=== PATIENT | male | born 1960 | race Caucasian/White ===

== ENCOUNTER 2016-12-27 11:47 | Inpatient (IN) ==
[2016-12-27] MEDS ORDERED: chlorproMAZINE 25 MG TABLET PO PRN (13:36)
[2016-12-27] MEDS ORDERED: traMADol 50 MG TABLET PO PRN (13:36)
[2016-12-27] MEDS ORDERED: diphenhydrAMINE CAP 25 MG CAPSULE PO PRN (13:36)
[2016-12-27] MEDS ORDERED: MYLANTA/LIDO VISC 2:1 300 ML BOTTLE SWISH/SWAL PRN (13:36)
[2016-12-27] MEDS ORDERED: MYLANTA/LIDO VISC 2:1 300 ML BOTTLE SWISH/SPIT PRN (13:36)
[2016-12-27] MEDS ORDERED: PROMETHAZINE INJ 25 MG in SODIUM CHLORIDE 0.9% 50 ML IV PRN (13:36)
[2016-12-27] MEDS ORDERED: guaiFENesin 200 MG/10 ML UDCUP PO PRN (13:36)
[2016-12-27] MEDS ORDERED: BENZTROPINE 2 MG/2 ML AMP IV PRN (13:36)
[2016-12-27] MEDS ORDERED: ALPRAZolam 0.25 MG TABLET PO PRN (13:36)
[2016-12-27] MEDS ORDERED: chlorproMAZINE INJ 25 MG in SODIUM CHLORIDE 0.9% 100 ML IV PRN (13:36)
[2016-12-27] MEDS ORDERED: ALUMINUM/MAGNES/SIMETH MAX STR 30 ML UDCUP PO PRN (13:36)
[2016-12-27] MEDS ORDERED: TEMAZEPAM 7.5 MG CAPSULE PO PRN (13:36)
[2016-12-27] MEDS ORDERED: LOPERAMIDE 2 MG CAPSULE PO PRN ×2 (13:36)
[2016-12-27] MEDS ORDERED: MAGNESIUM HYDROXIDE SUSP 30 ML UDCUP PO PRN (13:36)
[2016-12-27] MEDS ORDERED: ACETAMINOPHEN 325 MG TABLET PO PRN (13:36)
[2016-12-27] MEDS ORDERED: LACTULOSE 20 GM/30 ML UDCUP PO PRN (13:36)
[2016-12-27] MEDS ORDERED: chlorproMAZINE INJ 50 MG in SODIUM CHLORIDE 0.9% 100 ML IV PRN (13:36)
--- NOTE | 2016-12-27 14:12 | Gastrointestinal Consult Note ---
<Shalonda Stewart - Last Filed: 12/27/16 14:24> Assessment and Plan (1) Anemia Status: Acute Assessment and plan: 12/27-recent findings of melena with hemoglobin of 8.4 which is a decrease from his recent baseline of 12 on 11/29. Reports of increased dyspepsia and nausea following chemotherapy 2 weeks ago. Check stools for occult blood. Protonix twice daily. Plan for upper endoscopy tomorrow to further evaluate. Plan an addendum to follow by Dr. Ledesma. Current Visit: Yes History of Present Illness Chief complaint: Melena, epigastric pain History of present illness: Mr. Rhodes is a 56 year old male who was admitted to the hospital today after clinic visit with Dr. cleveland due to findings of anemia. Patient was recently diagnosed with pancreatic cancer last month and began his first initial chemotherapy treatment approximately 2 weeks ago. Patient states that following the treatment, he has some mild nausea as well as some increased dyspepsia symptoms including some increased belching and just generalized discomfort. He also recalls some epigastric pain at times with eating. Patient states too over the last several days he noticed that his stools have become darker than usual. He does recall taking a dose of Pepto-Bismol over the last several days but states this was only one time. He denies taking any NSAIDs. He denies any anticoagulant use. He denies any dysphagia, GERD. He denies any fever or chills. He has never been anemic in the past and has never had a blood transfusion before. He states that he was found at the clinic today to have a hemoglobin of 8 which was a significant drop from his baseline ( last known Hgb 12) and was referred to the hospital for further evaluation. Patient denies any vomiting episodes and does not recall any hematochezia. He states overall he has been fairly healthy up until this recent diagnosis. He has had a reported 5 pound weight loss since diagnosis. Home Medications Medication Instructions Recorded Confirmed Type Loratadine 10 mg PO DAILY 11/25/16 12/27/16 History Verapamil HCl [Verapamil Tab] 2 tablet PO DAILY 11/25/16 12/27/16 History Acetamin/Codeine 300-30 Tab 1 tablet PO Q6HR PRN 12/27/16 12/27/16 History [Tylenol/Codeine #3] Hydrocodone/Acetaminophen [[place] 1 tablet PO Q4-6H 12/27/16 12/27/16 History 10-325 Tablet] Lisinopril 20 mg PO DAILY 12/27/16 12/27/16 History Loperamide HCl [Imodium A-D] 2 mg PO DIRECTED PRN MDD 8 12/27/16 12/27/16 History Ondansetron Tab [Zofran Tab] 8 mg PO Q6H 12/27/16 12/27/16 History Promethazine Tab [Phenergan Tab] 25 mg PO Q4-6H PRN 12/27/16 12/27/16 History Allergies Allergy/AdvReac Type Severity Reaction Status Date / Time Penicillins Allergy Severe ANAPHYLAXIS Verified 11/25/16 11:17 Medical,Surgical,& Family Hx - Medical History Cardio: History of: Hypertension Neurology: No history of: Seizures HEENT: History of: Eye Problem (READING GLASSES), Dental Problems (FILLINGS) Respiratory: History of: Pneumonia (VAC.11/23/16) No history of: Respiratory Problems (FLU VAC- NO; PNEU VAC- YES.) Genitourinary: History of: Prostate Problems (BPH) Gastrointestinal: History of: GI Problems (PANCREAS MASS; NAUSEA) Musculoskeletal: History of: Back/Neck Problems (MIDDLE BACK PAIN) - Surgical History Orthopedic Surgeries: Surgical HX of;: Orthopedic Surgery (RT KNEE SCOPE) - Social History Smoking Status: Never smoker 12 point system: reviewed and no additional remarkable complaints except as stated - Constitutional Constitutional: Present: as per HPI - EENT Eyes: Present: as per HPI Ears: Present: as per HPI Nose, mouth and throat: Present: as per HPI - Cardiovascular Cardiovascular: Present: as per HPI - Respiratory Respiratory: Present: as per HPI - Gastrointestinal Gastrointestinal: Present: as per HPI, abdominal pain (Epigastric pain), dyspepsia, melena, nausea - Genitourinary Genitourinary: Present: as per HPI - Musculoskeletal Musculoskeletal: Present: as per HPI - Neurological Neurological: Present: as per HPI - Psychiatric Psychiatric: Present: as per HPI - Endocrine Endocrine: Present: as per HPI - Hematologic/Lymphatic Hematologic/Lymphatic: Present: as per HPI Exam - Constitutional Vitals: Period Temp Pulse Resp BP Sys/Puckett Pulse Ox Last 24 Hr 97.2 F 100 18 111/68 100 General appearance: normal weight, no acute distress - Head Head exam: Present: normal inspection, normocephalic - Eye Eye exam: Present: other (Lids and conjunctive are unremarkable). Absent: scleral icterus - ENT ENT exam: Present: normal exam, normal oropharynx - Neck Neck exam: Present: normal inspection - Respiratory Respiratory exam: Present: clear to auscultation bilaterally. Absent: rales, rhonchi, wheezes - Cardiovascular Cardiovascular exam: Present: regular rate and rhythm. Absent: diastolic murmur , JVD, systolic murmur - GI/Abdominal GI/Abdominal exam: Present: normal bowel sounds, tenderness (Epigastric), soft. Absent: ascites, distended, mass, organomegaly - Extremities Exam Extremities exam: Present: normal inspection, full ROM - Back Exam Back exam: Present: normal inspection - Neurological Exam Neurological exam: Present: alert, oriented X3 - Psychiatric Psychiatric exam: Present: normal affect, normal mood - Skin Skin exam: Present: normal color, warm, dry <Aureliano Ledesma - Last Filed: 12/27/16 20:50> History of Present Illness History of present illness: Mr. Rhodes is a 56 year old male Exam - Constitutional Vitals: Period Temp Pulse Resp BP Sys/Puckett Pulse Ox Last 24 Hr 97.2 F-98.6 F 84-100 18-20 111-142/68-80 99-100 Results - Labs CBC & BMP: 12/27/16 19:57
[2016-12-27] MEDS: PANTOPRAZOLE 40 MG VIAL IV SCH (14:48)
[2016-12-27] MEDS: SODIUM CHLORIDE 0.9% 1,000 ML IV SCH (14:49)
[2016-12-27 20:28] LABS: Basophils % 0.1 % (0.0-0.8); Eosinophils % 0.4 % (0.00-10.9); Hematocrit 23.3 VOL% (42.0-52.0); Hemoglobin 7.6 GM/DL (14.0-18.0); Immature Granulocytes % 11.6 %; Immature Granulocytes Absolute 0.89 #; Lymphocytes # 1.7 10*3/uL (1.4-4.0); Lymphocytes % 21.5 % (21.2-54.2); Mean Corpuscular HGB Conc 32.6 GM/DL (32-36); Mean Corpuscular Hemoglobin 28 PG (27-34); Mean Corpuscular Volume 85.3 FL (87-102); Mean Platelet Volume 10.3 FL (9.6-12.0); Monocytes # 0.6 10*3/uL (0.11-0.8); Monocytes % 7.9 % (1.7-12.7); NRBC # 0.03 10*3/uL; Neutrophils # 4.5 10*3/uL (1.4-7.4); Neutrophils % 58.5 % (38.7-73.9); Platelet Count 101 T/CUMM (130-400); Red Blood Count 2.73 MC/CUMM (3.8-5.5); Red Cell Distribution Width 14.6 % (9.3-17.3); White Blood Count 7.7 T/CUMM (4-12)
[2016-12-27] MEDS: ONDANSETRON 4 MG/2 ML VIAL IV PRN (21:43)
[2016-12-28 07:46] LABS: Basophils % 0.3 % (0.0-0.8); Eosinophils # 0.1 10*3/uL (0.0-0.87); Eosinophils % 0.8 % (0.00-10.9); Hematocrit 27.4 VOL% (42.0-52.0); Immature Granulocytes % 13.1 %; Immature Granulocytes Absolute 0.79 #; Lymphocytes # 1.3 10*3/uL (1.4-4.0); Lymphocytes % 22.2 % (21.2-54.2); Mean Corpuscular HGB Conc 33.9 GM/DL (32-36); Mean Corpuscular Hemoglobin 28 PG (27-34); Mean Corpuscular Volume 83.5 FL (87-102); Monocytes # 0.5 10*3/uL (0.11-0.8); Monocytes % 7.5 % (1.7-12.7); NRBC # 0.02 10*3/uL; Neutrophils # 3.4 10*3/uL (1.4-7.4); Neutrophils % 56.1 % (38.7-73.9); Red Cell Distribution Width 14.5 % (9.3-17.3)
[2016-12-28 07:47] LABS: Hemoglobin 9.3 GM/DL (14.0-18.0); Red Blood Count 3.28 MC/CUMM (3.8-5.5)
[2016-12-28 07:49] LABS: Platelet Count 79 T/CUMM (130-400)
[2016-12-28 07:53] LABS: INR 1.1; PT Patient Result 11.3 SECS; Partial Thromboplastin Time 23.9 SECS (0-40)
--- NOTE | 2016-12-28 07:54 | Oncology History&Physical ---
Assessment and Plan (1) Pancreatic carcinoma Status: Acute Assessment and plan: Proceed with EGD today and continued hematocrit monitor Current Visit: Yes History of Present Illness Chief complaint: Weakness History of present illness: Mr. Rhodes is a 56 year old male With newly diagnosed locally advanced pancreatic carcinoma. The patient has been seen by [facility] where he was referred to by Dr. Martinez. He presented originally to Dr. Jeremie Lynn with abdominal pain. He received 3 drug chemotherapy approximately 2 weeks ago. He has had significant nausea following the treatment but denied any hemoptysis or hematemesis. Over this past weekend he developed melena on Monday evening and Monday. He was seen yesterday in the office and appeared pale and weak and somewhat hypotensive. His hematocrit was 25 which was compared to a level of 38 prior to chemotherapy initiation. He was admitted for IV Protonix fluid resuscitation and blood transfusion which was given overnight. He has been seen by gastroenterology with plans for EGD today Home Medications Medication Instructions Recorded Confirmed Type Loratadine 10 mg PO DAILY 11/25/16 12/27/16 History Verapamil HCl [Verapamil Tab] 2 tablet PO DAILY 11/25/16 12/27/16 History Acetamin/Codeine 300-30 Tab 1 tablet PO Q6HR PRN 12/27/16 12/27/16 History [Tylenol/Codeine #3] Hydrocodone/Acetaminophen [[place] 1 tablet PO Q4-6H 12/27/16 12/27/16 History 10-325 Tablet] Lisinopril 20 mg PO DAILY 12/27/16 12/27/16 History Loperamide HCl [Imodium A-D] 2 mg PO DIRECTED PRN MDD 8 12/27/16 12/27/16 History Ondansetron Tab [Zofran Tab] 8 mg PO Q6H 12/27/16 12/27/16 History Promethazine Tab [Phenergan Tab] 25 mg PO Q4-6H PRN 12/27/16 12/27/16 History Allergies Allergy/AdvReac Type Severity Reaction Status Date / Time Penicillins Allergy Severe ANAPHYLAXIS Verified 11/25/16 11:17 Medical,Surgical,& Family Hx - Medical History Cardio: History of: Hypertension Neurology: No history of: Seizures HEENT: History of: Eye Problem (READING GLASSES), Dental Problems (FILLINGS) Respiratory: History of: Pneumonia (VAC.11/23/16) No history of: Respiratory Problems (FLU VAC- NO; PNEU VAC- YES.) Genitourinary: History of: Prostate Problems (BPH) Gastrointestinal: History of: Gastrointestinal Bleed (current admit), GI Problems (PANCREAS MASS; NAUSEA) Musculoskeletal: History of: Back/Neck Problems (MIDDLE BACK PAIN) - Surgical History Orthopedic Surgeries: Surgical HX of;: Orthopedic Surgery (RT KNEE SCOPE) - Family History Family History: Reports;: Family Diabetes (father and mother), Family Hypertension (father and grandmother) - Social History Smoking Status: Never smoker Frequency of Alcohol Use: None Type of Drug Use: None - Constitutional Constitutional: Present: fatigue. Absent: fever(s), increased appetite, night sweats - EENT Eye: Absent: blurry vision, diplopia, loss of vision Ears: Absent: decreased hearing, ear discharge, ear pain - Cardiovascular Cardiovascular ROS IM: Absent: chest pain - Respiratory Respiratory: Absent: cough - Gastrointestinal Gastrointestinal: Present: abdominal pain, change in bowel habits, melena. Absent: diarrhea, jaundice - Neurological Neurological ROS: Absent: abnormal gait, abnormal speech Exam - Constitutional Vitals: Period Temp Pulse Resp BP Sys/Puckett Pulse Ox Last 24 Hr 97.2 F-98.6 F 72-104 18-20 111-158/63-94 97-100 General appearance: normal weight, no acute distress - Head Head Exam: Present: normal inspection, normocephalic, atraumatic - Eye Eye Exam: Present: EOMI. Absent: conjunctival injection, periorbital swelling, scleral icterus Pupils: Present: PERRL, normal accommodation - ENT ENT exam: Present: normal external ear exam - Neck Neck exam: Present: normal inspection. Absent: lymphadenopathy - Respiratory Respiratory exam: Present: CTAB. Absent: accessory muscle use, chest wall tenderness - Cardiovascular Cardiovascular exam: Present: RRR. Absent: tachycardia - GI/Abdominal GI/Abdominal exam: Absent: ascites, distended, firm, guarding - Neurological Exam Neurological exam: Present: alert, oriented X3 - Psychiatric Psychiatric exam: Present: normal affect, normal mood - Skin Skin exam: Present: warm, dry Results - Labs CBC & BMP: 12/28/16 07:35
[2016-12-28] MEDS ORDERED: LOPERAMIDE 2 MG CAPSULE PO PRN (07:55)
[2016-12-28] MEDS ORDERED: PROMETHAZINE 25 MG TABLET PO PRN (07:55)
[2016-12-28] MEDS ORDERED: ACETAMINOPHEN/CODEINE 300-30 MG TABLET PO PRN (07:55)
[2016-12-28 08:29] LABS: Band Neutrophils 6 % (0-10); Lymphocytes 17 % (20-55); Segmented Neutrophils 62 % (50-85); Total Cells Counted 100
[2016-12-28 08:30] LABS: Giant Platelets Few; Hypochromasia 1+; Ovalocytes Slight; Platelet Estimate Decreased
[2016-12-28 08:31] LABS: Microcytosis Slight
[2016-12-28 08:48] LABS: Albumin 3.3 G/DL (3.4-5.0); Bilirubin,Total 0.4 MG/DL (0.2-1.0); Calcium 8.4 MG/DL (8.5-10.1); Osmolality,Calculated 279.4 MOS/KG (273-304); Potassium 4.6 MMOL/L (3.5-5.1); Total Protein 5.9 G/DL (6.4-8.3)
--- NOTE | 2016-12-28 09:58 | Physician Query Form ---
CLICK EDIT DOCUMENT TO SELECT QUERY ANSWER --> OK --> SIGN Dianne Mnotoya RN, CCDS Certified Clinical Muck Operator W) [phone] (f) [phone] [email or web address] PROVIDERS: Make your selection(s) from the choices in EACH section by typing an "x" and enter comments in the comment section. Please use your independent medical judgment in providing your response. This request does not imply that any particular answer is desired or expected. CLINICAL INDICATORS: (Providers should not edit this section) "He states that he was found at the clinic today to have a hemoglobin of 8 which was a significant drop from his baseline (last known Hgb 12) and was referred to the hospital for further evaluation"; and the patient was given blood. Based on the above, could you clarify which of the following conditions you are evaluating, treating, and/or monitoring? ( x) Blood loss anemia ( x) acute ( ) chronic ( ) acute on chronic ( ) Acute blood loss anemia on baseline chronic anemia ( ) Acute blood loss anemia as a complication of a procedure ( ) Iron deficiency anemia not associated with blood loss ( ) Dilutional anemia due to IV fluids ( ) Anemia due to chemotherapy ( ) Anemia due to neoplastic disease ( ) Anemia due to chronic kidney disease ( ) Pernicious anemia ( ) Aplastic anemia ( ) Hemolytic anemia ( ) immune ( ) non-immune - please specify cause: ( ) Anemia due to other condition, please specify: ( ) Clinically unable to determine COMMENTS: PLEASE ALSO DOCUMENT RESPONSE IN PROGRESS NOTES AND/OR DISCHARGE SUMMARY Use of terms such as suspected, likely, or probable (associated with a specific diagnosis that is being evaluated, monitored, or treated as if it exists) are acceptable and can be restated in the discharge summary if not ruled out. MTDD
[2016-12-28] MEDS ORDERED: LIDOCAINE 2% 5 ML VIAL ONE (11:01)
[2016-12-28] MEDS ORDERED: PROPOFOL 200 MG/20 ML VIAL IV ONE (11:01)
--- NOTE | 2016-12-28 11:13 | Operative Note ---
Date of procedure: 12/28/16 Pre-op diagnosis: Anemia with possible melena Procedure: EGD 56-year-old gentleman with pancreatic cancer who was admitted with anemia and melenic stools now for upper endoscopy to further evaluate. He is also had persistent complaints of nausea. Informed symptoms obtained the patient He was sedated with general anesthesia. Patient was placed in left lateral decubitus position the Olympus flexible video upper endoscope was inserted into the oral cavity under direct vision the esophagus was intubated. Findings: Esophagus-normal proximal mid esophageal mucosa no significant esophagitis stricture or varices were seen. Distal esophagus was normal. Stomach-normal insufflation normal mucosa to direct retroflexed views of the body, fundus, cardia and antrum the stomach. No gastric varices or portal gastropathy was observed. Pylorus-normal Duodenum-normal for the bulb and duodenum to the third portion of the duodenum. The ampulla was identified and appears normal. The procedure was terminated placed our procedure well his discharge recovery in good condition. Postop diagnosis: 1. Normal EGD without explanation for anemia. Will need to consider colonoscopy and will discuss further with patient and his family regarding inpatient or outpatient endoscopy. [place]est[place]: [facility] [place] Surgeon / Physician: Aurelaino Ledesma Estimated blood loss: none Specimens: none sent Condition: stable Disposition: post procedure unit Results - Labs CBC & BMP: 12/28/16 07:35 12/28/16 07:35 Discharge Plan - Discharge Medications No Action Loratadine 10 mg PO DAILY Lisinopril 20 mg PO DAILY Loperamide HCl [Imodium A-D] 2 mg PO DIRECTED PRN MDD 8 PRN Reason: Diarrhea Acetamin/Codeine 300-30 Tab [Tylenol/Codeine #3] 1 tablet PO Q6HR PRN PRN Reason: Pain Verapamil HCl [Verapamil Tab] 2 tablet PO DAILY Promethazine Tab [Phenergan Tab] 25 mg PO Q4-6H PRN PRN Reason: Nausea Hydrocodone/Acetaminophen [[place] 10-325 Tablet] 1 tablet PO Q4-6H Ondansetron Tab [Zofran Tab] 8 mg PO Q6H - Follow Up or Referral - Forms/Instructions
--- NOTE | 2016-12-28 11:55 | Anesthesia Post-Op ---
Anesthesia Post OP - Post Ansesthetic Evaluation Patient seen in post op: Yes Resp: within normal limits CV: within normal limits Mental: within normal limits Temp: within normal limits [id number]: within normal limits Nausea and Vomiting: within normal limits Pain: within normal limits
[2016-12-28] MEDS ORDERED: BISACODYL 5 MG TABLET PO ONE (12:00)
[2016-12-28] MEDS: ONDANSETRON 4 MG TABLET PO SCH ×3 (13:44→20:13)
[2016-12-28] MEDS: VERAPAMIL 80 MG TABLET PO SCH (14:23)
[2016-12-28] MEDS: LORATADINE 10 MG TABLET PO SCH (14:24)
[2016-12-28] MEDS: ONDANSETRON 4 MG/2 ML VIAL IV PRN (14:27)
[2016-12-28] MEDS: PANTOPRAZOLE 40 MG VIAL IV SCH (14:29)
[2016-12-28] MEDS: SODIUM CHLORIDE 0.9% 1,000 ML IV SCH ×2 (14:31→16:07)
[2016-12-28] MEDS ORDERED: POLYETHYLENE GLYCOL POWDER 255 GM BOTTLE PO ONE (18:00)
[2016-12-29] MEDS: SODIUM CHLORIDE 0.9% 1,000 ML IV SCH (02:00)
[2016-12-29] MEDS: ONDANSETRON 4 MG TABLET PO SCH ×3 (02:14→14:59)
[2016-12-29 04:26] LABS: Basophils % 0.2 % (0.0-0.8); Hematocrit 24.2 VOL% (42.0-52.0); Immature Granulocytes % 11.6 %; Immature Granulocytes Absolute 0.47 #; Lymphocytes # 0.9 10*3/uL (1.4-4.0); Lymphocytes % 21.3 % (21.2-54.2); Mean Corpuscular HGB Conc 33.1 GM/DL (32-36); Mean Corpuscular Hemoglobin 29 PG (27-34); Mean Corpuscular Volume 86.1 FL (87-102); Mean Platelet Volume 10.7 FL (9.6-12.0); Monocytes # 0.3 10*3/uL (0.11-0.8); Monocytes % 6.7 % (1.7-12.7); Neutrophils # 2.4 10*3/uL (1.4-7.4); Neutrophils % 59.2 % (38.7-73.9); Red Blood Count 2.81 MC/CUMM (3.8-5.5); Red Cell Distribution Width 14.6 % (9.3-17.3)
[2016-12-29 04:32] LABS: Platelet Count 68 T/CUMM (130-400)
[2016-12-29 05:15] LABS: Band Neutrophils 8 % (0-10); Lymphocytes 19 % (20-55); Myelocytes 1 %; Platelet Estimate Decreased; Segmented Neutrophils 66 % (50-85); Total Cells Counted 100
[2016-12-29 05:16] LABS: Giant Platelets Few; Hypochromasia 1+; Microcytosis Slight; Ovalocytes Slight
--- NOTE | 2016-12-29 08:00 | Discharge Summary ---
Hospital Course - Hospital Course Hospital Course: Mr. Rhodes is a 56-year-old white male with newly diagnosed pancreatic cancer that was recently started on chemotherapy. He presented to the clinic this week with a complaint of melena. Is admitted for further evaluation and transfusion. He was given 2 units of blood with an appropriate response. He underwent upper endoscopy yesterday with no visible findings that would point toward the etiology of his melana. He denies any further melena since being in the hospital. He is scheduled for colonoscopy today. As long as this colonoscopy does not show any visible bleeding, he can be discharged home. He is already scheduled for chemotherapy next Monday. His hemoglobin today is around 8 but I think this may be secondary to his recent chemotherapy treatment and not from active bleeding. I will discuss with him about getting another unit of blood before discharge to be safe. - Time spent with patient Time with patient DS: Greater than 30 minutes Discharge Plan - Discharge Data Disposition: Disch To Home/Self Care Condition at Discharge: Stable Discharge Diet: advance to your usual diet Activity: resume usual activities as tolerated Hygiene: no restrictions Weight Bearing at Discharge: full weight bearing Driving: no restrictions - Discharge Medications Continue Loratadine 10 mg PO DAILY Loperamide HCl [Imodium A-D] 2 mg PO DIRECTED PRN MDD 8 PRN Reason: Diarrhea Acetamin/Codeine 300-30 Tab [Tylenol/Codeine #3] 1 tablet PO Q6HR PRN PRN Reason: Pain Verapamil HCl [Verapamil Tab] 2 tablet PO DAILY Promethazine Tab [Phenergan Tab] 25 mg PO Q4-6H PRN PRN Reason: Nausea Hydrocodone/Acetaminophen [[place] 10-325 Tablet] 1 tablet PO Q4-6H Ondansetron Tab [Zofran Tab] 8 mg PO Q6H Discontinued Lisinopril 20 mg PO DAILY - Follow Up or Referral - Forms/Instructions Exam - Constitutional Vitals: Period Temp Pulse Resp BP Sys/Puckett Pulse Ox Last 24 Hr 97.1 F-98.7 F 64-90 14-20 113-166/68-092 95-99 Discharge Results Procedures and tests throughout hospitalization: Pending Orders 12/28/16 18:00 Occult Blood, Stool Routine Labs on day of discharge: Labs from last 24 hours 12/29/16 12/28/16 12/28/16 03:03 07:35 07:35 WBC 4.0 D RBC 2.81 L Hgb 8.0 L Hct 24.2 L MCV 86.1 L MCH 29 MCHC 33.1 RDW 14.6 Plt Count 68 L MPV 10.7 Neut % (Auto) 59.2 Lymph % (Auto) 21.3 [place] % (Auto) 6.7 Eos % (Auto) 1.0 Baso % (Auto) 0.2 Neut # (Auto) 2.4 Lymph # (Auto) 0.9 L [place] # (Auto) 0.3 Eos # (Auto) 0.0 Baso # (Auto) 0.0 Total Counted 100 100 Immature Gran % 11.6 Nucleated RBC % 0.0 Immature Gran # 0.47 Segmented Neutrophils 66 62 Band Neutrophils 8 6 Lymphocytes 19 L 17 L Monocytes 5 12 Basophils 1.0 H 3.0 H Myelocytes 1 Nucleated RBCs # 0.00 Platelet Estimate Decreased Decreased Giant Platelets Few Few Immature Plt Fraction 0.0 Hypochromasia 1+ 1+ Microcytosis Slight Slight Ovalocytes Slight Slight Morphology Comment Sodium 140 Potassium 4.6 Chloride 106 Carbon Dioxide 31 Anion Gap 7.6 BUN 15 Creatinine 1.10 GFR Calculation 102 BUN/Creatinine Ratio 13.00 Glucose 102 Calculated Osmolality 279.4 Calcium 8.4 L Total Bilirubin 0.40 AST 15 ALT 20 Alkaline Phosphatase 53 Total Protein 5.9 L Albumin 3.3 L Globulin 2.6 Albumin/Globulin Ratio 1.2 DS: Provider Date of admission: 12/27/16 12:12 Primary care physician: Jeremie Lynn MD Attending physician on admission: Marcos Larkin MD Consults: 12/27/16 12:56 Consult to Physician [CONS] Routine Comment: Consulting Provider: Aureliano Ledesma Consulting Provider Notified: Yes When should Consulting Provider be notified: Now Consult to Specialist Group: Gastroenterology When should Consulting Provider be notified: Now Person Notified: FLORINDA Date Notified: 12/27/16 Time Notified: 12:57 Discharging clinician: Alexis Kurtz MD
[2016-12-29] MEDS ORDERED: LIDOCAINE 2% 5 ML VIAL ONE (09:00)
[2016-12-29] MEDS ORDERED: PROPOFOL 200 MG/20 ML VIAL IV ONE (09:00)
--- NOTE | 2016-12-29 10:32 | History and Physical Update ---
History and Physical Update - Physical Exam Mental Status: alert and oriented Heart: regular rate and rhythm Lung: clear to auscultation Abdomen: within normal limits Vitals: within normal limits
--- NOTE | 2016-12-29 10:36 | Operative Note ---
Date of procedure: 12/29/16 Pre-op diagnosis: Screening colonoscopy and anemia Procedure: Colonoscopy 56-year-old gentleman with anemia who is never had a screening colonoscopy now for colonoscopy. Informed consent was obtained the patient He was sedated with general anesthesia per anesthesia protocol. Patient was placed left lateral decubitus position digital exam was normal revealing no rectal masses normal prostate. The Olympus flexible video colonoscope was inserted in the anal canal advanced under direct vision of the cecum identified by the ileocecal valve and appendiceal orifice. Withdrawal time 8 minutes Prep fair to good Findings: Cecum-normal identified by ileocecal valve and appendiceal orifice Terminal ileum-normal Ascending colon-normal Transverse colon-normal Descending colon-normal Sigmoid colon-normal Rectum-normal to direct and retroflexed views. The procedure terminated placed our procedure well he is discharge recovery in good condition. Postop diagnosis: 1. Normal screening colonoscopy with source of blood loss identified 2. Proceed with transfusion as previously ordered 3. Okay to discharge from my standpoint if evidence of active bleeding occurs consider bleeding scan to attempt to localize. Anesthesia: other (General) Surgeon / Physician: Aureliano Ledesma Estimated blood loss: none Specimens: none sent Condition: stable Disposition: post procedure unit Results - Labs CBC & BMP: 12/29/16 03:03 12/28/16 07:35 Discharge Plan - Discharge Data Disposition: Disch To Home/Self Care - Discharge Medications Continue Loratadine 10 mg PO DAILY Loperamide HCl [Imodium A-D] 2 mg PO DIRECTED PRN MDD 8 PRN Reason: Diarrhea Acetamin/Codeine 300-30 Tab [Tylenol/Codeine #3] 1 tablet PO Q6HR PRN PRN Reason: Pain Verapamil HCl [Verapamil Tab] 2 tablet PO DAILY Promethazine Tab [Phenergan Tab] 25 mg PO Q4-6H PRN PRN Reason: Nausea Hydrocodone/Acetaminophen [[place] 10-325 Tablet] 1 tablet PO Q4-6H Ondansetron Tab [Zofran Tab] 8 mg PO Q6H Discontinued Lisinopril 20 mg PO DAILY - Follow Up or Referral Follow Up: Marcos Larkin MD [Physician] - (Follow up at Dr. Larkin office as scheduled on Monday.) - Forms/Instructions Instructions: Gastrointestinal Bleeding (DC)
--- NOTE | 2016-12-29 10:39 | Anesthesia Post-Op ---
Anesthesia Post OP - Post Ansesthetic Evaluation Patient seen in post op: Yes Resp: within normal limits CV: within normal limits Mental: within normal limits Temp: within normal limits [id number]: within normal limits Nausea and Vomiting: within normal limits Pain: within normal limits
[2016-12-29] MEDS: LORATADINE 10 MG TABLET PO SCH (12:46)
[2016-12-29] MEDS: PANTOPRAZOLE 40 MG VIAL IV SCH (12:47)
[2016-12-29] MEDS: VERAPAMIL 80 MG TABLET PO SCH (12:47)
[2016-12-29] MEDS ORDERED: HEPARIN LOCK FLUSH 500 UNIT/5 ML SYRINGE IV PRN (14:11)
[2016-12-29 15:17] VITALS: BP 163/91
== END 2016-12-29 15:30 | disposition home or self-care (01) | DRG 378 ==
LOC: N.4E 12:12
PROVIDERS: ADMIT Specialist; ATTEND Specialist

== ENCOUNTER 2017-03-04 13:46 | Inpatient (IN) ==
[2017-03-04] MEDS ORDERED: SODIUM CHLORIDE 0.9% 1,000 ML IV STA (14:41)
[2017-03-04] MEDS ORDERED: METOCLOPRAMIDE 10 MG/2 ML VIAL IV STA (14:41)
[2017-03-04] MEDS ORDERED: ONDANSETRON 4 MG/2 ML VIAL IV STA (14:41)
[2017-03-04] MEDS ORDERED: PANTOPRAZOLE 40 MG VIAL IV STA (14:41)
[2017-03-04 14:56] LABS: Basophils % 0.2 % (0.0-0.8); Eosinophils # 0.1 10*3/uL (0.0-0.87); Eosinophils % 2.1 % (0.00-10.9); Hematocrit 26.9 VOL% (42.0-52.0); Hemoglobin 8.7 GM/DL (14.0-18.0); Immature Granulocytes % 0.9 %; Immature Granulocytes Absolute 0.05 #; Lymphocytes # 1.4 10*3/uL (1.4-4.0); Lymphocytes % 24.5 % (21.2-54.2); Mean Corpuscular HGB Conc 32.3 GM/DL (32-36); Mean Corpuscular Hemoglobin 28 PG (27-34); Mean Corpuscular Volume 87.9 FL (87-102); Mean Platelet Volume 10.9 FL (9.6-12.0); Monocytes # 0.7 10*3/uL (0.11-0.8); Monocytes % 11.9 % (1.7-12.7); Neutrophils # 3.4 10*3/uL (1.4-7.4); Neutrophils % 60.4 % (38.7-73.9); Platelet Count 106 T/CUMM (130-400); Red Blood Count 3.06 MC/CUMM (3.8-5.5); Red Cell Distribution Width 16.1 % (9.3-17.3); White Blood Count 5.6 T/CUMM (4-12)
[2017-03-04] MEDS ORDERED: METOCLOPRAMIDE 10 MG/2 ML VIAL ONE (15:02)
[2017-03-04] MEDS ORDERED: PANTOPRAZOLE 40 MG VIAL IV ONE (15:02)
[2017-03-04] MEDS ORDERED: ONDANSETRON 4 MG/2 ML VIAL ONE (15:03)
[2017-03-04 15:09] LABS: PT Patient Result 10.9 SECS; Partial Thromboplastin Time 24.7 SECS (0-40)
[2017-03-04 15:21] LABS: Alanine Aminotransferase 28 U/L (16-61); Albumin 3.2 G/DL (3.4-5.0); Alkaline Phosphatase 65 U/L (45-117); Amylase 99 U/L (25-115); Aspartate Amino Transferase 21 U/L (0-37); Blood Urea Nitrogen 18 MG/DL (7-18); Calcium 8.6 MG/DL (8.5-10.1); Glucose 115 MG/DL (74-106); Osmolality,Calculated 283.3 MOS/KG (273-304); Sodium 141 MMOL/L (136-145); Total Protein 6.2 G/DL (6.4-8.3); Troponin I Only < 0.015 NG/ML (0.00-0.045)
[2017-03-04 15:26] LABS: Lactic Acid 1.6 MMOL/L (0.4-2.0)
[2017-03-04] MEDS ORDERED: HYDROmorphone 2 MG/1 ML VIAL IV PRN (20:51)
[2017-03-04] MEDS ORDERED: ONDANSETRON 4 MG/2 ML VIAL IV PRN (20:51)
[2017-03-04 20:56] LABS: Basophils % 0.3 % (0.0-0.8); Eosinophils # 0.1 10*3/uL (0.0-0.87); Eosinophils % 2.1 % (0.00-10.9); Hemoglobin 7.6 GM/DL (14.0-18.0); Immature Granulocytes % 0.6 %; Immature Granulocytes Absolute 0.02 #; Lymphocytes % 29.9 % (21.2-54.2); Mean Corpuscular HGB Conc 31.7 GM/DL (32-36); Mean Corpuscular Hemoglobin 28 PG (27-34); Mean Corpuscular Volume 89.2 FL (87-102); Mean Platelet Volume 11.6 FL (9.6-12.0); Monocytes # 0.5 10*3/uL (0.11-0.8); Monocytes % 13.9 % (1.7-12.7); Neutrophils # 1.8 10*3/uL (1.4-7.4); Neutrophils % 53.2 % (38.7-73.9); Platelet Count 69 T/CUMM (130-400); Red Blood Count 2.69 MC/CUMM (3.8-5.5); Red Cell Distribution Width 16.1 % (9.3-17.3); White Blood Count 3.3 T/CUMM (4-12)
[2017-03-04] MEDS ORDERED: DRONABINOL 2.5 MG CAPSULE PO PRN (21:00)
[2017-03-04] MEDS: LACTATED RINGERS 1,000 ML IV SCH (21:30)
[2017-03-04] MEDS: METOCLOPRAMIDE 10 MG/2 ML VIAL IV SCH (21:39)
[2017-03-04] MEDS: PANTOPRAZOLE 40 MG VIAL IV SCH (21:44)
[2017-03-05] MEDS: DEXTROSE 5% NACL 0.9% 1,000 ML IV SCH ×2 (00:10→06:01)
[2017-03-05] MEDS ORDERED: METOCLOPRAMIDE 10 MG/2 ML VIAL IV SCH (03:30)
[2017-03-05] MEDS: LACTATED RINGERS 1,000 ML IV SCH ×3 (04:20→14:17)
[2017-03-05 06:05] LABS: Basophils % 0.6 % (0.0-0.8); Eosinophils % 2.5 % (0.00-10.9); Hematocrit 21.9 VOL% (42.0-52.0); Hemoglobin 7.1 GM/DL (14.0-18.0); Immature Granulocytes % 1.2 %; Immature Granulocytes Absolute 0.02 #; Lymphocytes # 0.6 10*3/uL (1.4-4.0); Mean Corpuscular HGB Conc 32.4 GM/DL (32-36); Mean Corpuscular Hemoglobin 29 PG (27-34); Mean Corpuscular Volume 88.7 FL (87-102); Mean Platelet Volume 10.4 FL (9.6-12.0); Monocytes # 0.2 10*3/uL (0.11-0.8); Monocytes % 14.1 % (1.7-12.7); Neutrophils # 0.7 10*3/uL (1.4-7.4); Neutrophils % 43.6 % (38.7-73.9); Red Blood Count 2.47 MC/CUMM (3.8-5.5); Red Cell Distribution Width 15.9 % (9.3-17.3); White Blood Count 1.6 T/CUMM (4-12)
[2017-03-05 06:06] LABS: Platelet Count 52 T/CUMM (130-400)
[2017-03-05] MEDS: METOCLOPRAMIDE 10 MG/2 ML VIAL IV SCH (06:24)
[2017-03-05 06:38] LABS: Calcium 8.3 MG/DL (8.5-10.1); Osmolality,Calculated 282.1 MOS/KG (273-304); Potassium 4.4 MMOL/L (3.5-5.1)
[2017-03-05] MEDS ORDERED: ALPRAZolam 0.25 MG TABLET PO PRN (06:55)
[2017-03-05] MEDS ORDERED: chlorproMAZINE INJ 50 MG in SODIUM CHLORIDE 0.9% 100 ML IV PRN (06:55)
[2017-03-05] MEDS ORDERED: chlorproMAZINE 25 MG TABLET PO PRN (06:55)
[2017-03-05] MEDS ORDERED: MYLANTA/LIDO VISC 2:1 300 ML BOTTLE SWISH/SPIT PRN (06:55)
[2017-03-05] MEDS ORDERED: MAGNESIUM HYDROXIDE SUSP 30 ML UDCUP PO PRN (06:55)
[2017-03-05] MEDS ORDERED: MYLANTA/LIDO VISC 2:1 300 ML BOTTLE SWISH/SWAL PRN (06:55)
[2017-03-05] MEDS ORDERED: ONDANSETRON 4 MG/2 ML VIAL IV PRN (06:55)
[2017-03-05] MEDS ORDERED: ALUMINUM/MAGNES/SIMETH MAX STR 30 ML UDCUP PO PRN (06:55)
[2017-03-05] MEDS ORDERED: ACETAMINOPHEN 325 MG TABLET PO PRN (06:55)
[2017-03-05] MEDS ORDERED: LOPERAMIDE 2 MG CAPSULE PO PRN ×2 (06:55)
[2017-03-05] MEDS ORDERED: diphenhydrAMINE CAP 25 MG CAPSULE PO PRN (06:55)
[2017-03-05] MEDS ORDERED: LACTULOSE 20 GM/30 ML UDCUP PO PRN (06:55)
[2017-03-05] MEDS ORDERED: BENZTROPINE 2 MG/2 ML AMP IV PRN (06:55)
[2017-03-05] MEDS ORDERED: chlorproMAZINE INJ 25 MG in SODIUM CHLORIDE 0.9% 100 ML IV PRN (06:55)
[2017-03-05] MEDS ORDERED: guaiFENesin 200 MG/10 ML UDCUP PO PRN (06:55)
[2017-03-05] MEDS ORDERED: PROMETHAZINE INJ 25 MG in SODIUM CHLORIDE 0.9% 50 ML IV PRN (06:55)
[2017-03-05] MEDS ORDERED: traMADol 50 MG TABLET PO PRN (06:55)
[2017-03-05] MEDS ORDERED: TEMAZEPAM 7.5 MG CAPSULE PO PRN (06:55)
[2017-03-05] MEDS ORDERED: ACETAMINOPHEN 325 MG TABLET ONE (07:06)
[2017-03-05 07:13] LABS: Band Neutrophils 13 % (0-10); Eosinophils 3 % (0-10); Lymphocytes 41 % (20-55); Metamyelocytes 1 %; Platelet Estimate Decreased; Segmented Neutrophils 32 % (50-85)
[2017-03-05 07:19] LABS: Acanthocytes Few; Hypochromasia Slight
[2017-03-05 07:21] LABS: Total Cells Counted 100
[2017-03-05 07:42] LABS: Eosinophils % 2.4 % (0.00-10.9); Hematocrit 24.2 VOL% (42.0-52.0); Hemoglobin 7.6 GM/DL (14.0-18.0); Immature Granulocytes % 0.6 %; Immature Granulocytes Absolute 0.01 #; Lymphocytes # 0.6 10*3/uL (1.4-4.0); Lymphocytes % 37.7 % (21.2-54.2); Mean Corpuscular HGB Conc 31.4 GM/DL (32-36); Mean Corpuscular Hemoglobin 28 PG (27-34); Mean Corpuscular Volume 88.3 FL (87-102); Mean Platelet Volume 10.8 FL (9.6-12.0); Monocytes # 0.2 10*3/uL (0.11-0.8); Monocytes % 13.2 % (1.7-12.7); Neutrophils # 0.8 10*3/uL (1.4-7.4); Neutrophils % 46.1 % (38.7-73.9); Red Blood Count 2.74 MC/CUMM (3.8-5.5); Red Cell Distribution Width 15.9 % (9.3-17.3); White Blood Count 1.7 T/CUMM (4-12)
[2017-03-05 07:43] LABS: Platelet Count 55 T/CUMM (130-400)
[2017-03-05 08:11] LABS: Eosinophils 3 % (0-10); Giant Platelets Few; Hypochromasia 1+; Lymphocytes 40 % (20-55); Ovalocytes Slight; Platelet Estimate Decreased; Segmented Neutrophils 46 % (50-85); Total Cells Counted 100
[2017-03-05 08:29] LABS: Bilirubin,Total 0.4 MG/DL (0.2-1.0); Calcium 8.2 MG/DL (8.5-10.1); Magnesium 1.8 MG/DL (1.8-2.4); Osmolality,Calculated 277.4 MOS/KG (273-304); Potassium 4.3 MMOL/L (3.5-5.1); Total Protein 5.5 G/DL (6.4-8.3); Uric Acid 6.2 MG/DL (3.5-7.2)
[2017-03-05 08:36] LABS: Apearance,Urine CLEAR (Clear); Bilirubin,Urine Negative (Negative); Blood, Urine Negative (Negative); Glucose,Urine (UA) Negative (Negative); Hyaline Casts,Urine 1 /LPF (0-3); Ketones,Urine Negative (Negative); Mucus,Urine Occasional /LPF (Occasional); Nitrite,Urine Negative (Negative); Protein,Urine Negative; RBC,Urine <1 /HPF (0-4); Squamous Epithelial Cell,Urine Occasional /HPF (0-10); Urine Color Straw (Yellow); Urine Specific Gravity 1.011 (1.001-1.035); Urine Urobilinogen < 2.0 EU/DL (0.2-1.0); WBC,Urine 1 /HPF (0-6)
[2017-03-05] MEDS ORDERED: LORATADINE 10 MG TABLET PO SCH (09:00)
[2017-03-05] MEDS: PANTOPRAZOLE 40 MG VIAL IV SCH (09:22)
[2017-03-05 11:57] VITALS: BP 164/86
[2017-03-05] MEDS ORDERED: HEPARIN LOCK FLUSH 500 UNIT/5 ML SYRINGE IV ONE (14:44)
== END 2017-03-05 15:25 | disposition home or self-care (01) | DRG 378 ==
LOC: N.ED 13:46 → N.EDINP 17:42 → N.4E 19:27
PROVIDERS: ADMIT Internal Medicine Hematology & Oncology; ATTEND Internal Medicine Hematology & Oncology

== ENCOUNTER 2017-08-20 12:31 | Inpatient (IN) ==
[2017-08-20 16:08] LABS: Basophils % 0.1 % (0.0-0.8); Eosinophils % 0.4 % (0.00-10.9); Hematocrit 27.4 VOL% (42.0-52.0); Hemoglobin 9.1 GM/DL (14.0-18.0); Immature Granulocytes % 0.6 %; Immature Granulocytes Absolute 0.05 #; Lymphocytes # 0.3 10*3/uL (1.4-4.0); Lymphocytes % 3.7 % (21.2-54.2); Mean Corpuscular HGB Conc 33.2 GM/DL (32-36); Mean Corpuscular Hemoglobin 28 PG (27-34); Mean Platelet Volume 9.5 FL (9.6-12.0); Monocytes # 1.6 10*3/uL (0.11-0.8); Monocytes % 19.1 % (1.7-12.7); Neutrophils # 6.5 10*3/uL (1.4-7.4); Neutrophils % 76.1 % (38.7-73.9); Platelet Count 245 T/CUMM (130-400); Red Blood Count 3.26 MC/CUMM (3.8-5.5); Red Cell Distribution Width 16.1 % (9.3-17.3); White Blood Count 8.6 T/CUMM (4-12)
[2017-08-20 16:18] LABS: INR 1.1; PT Patient Result 11.3 SECS
[2017-08-20 16:28] LABS: Hypochromasia Slight; Lymphocytes 4 % (20-55); Segmented Neutrophils 76 % (50-85); Total Cells Counted 100
[2017-08-20 16:29] LABS: Elliptocytes Few; Platelet Estimate Adequate; Poikilocytosis Slight; Schistocytes Few
[2017-08-20 16:34] LABS: Alanine Aminotransferase 16 U/L (16-61); Albumin 2.9 G/DL (3.4-5.0); Alkaline Phosphatase 129 U/L (45-117); Amylase 6 U/L (25-115); Aspartate Amino Transferase 27 U/L (0-37); Blood Urea Nitrogen 14 MG/DL (7-18); Calcium 8.9 MG/DL (8.5-10.1); Glucose 93 MG/DL (74-106); Osmolality,Calculated 262.7 MOS/KG (273-304); Potassium 4.5 MMOL/L (3.5-5.1); Sodium 131 MMOL/L (136-145); Total Protein 6.2 G/DL (6.4-8.3); Troponin I Only < 0.015 NG/ML (0.00-0.045)
[2017-08-20 16:47] LABS: Apearance,Urine CLEAR (Clear); Bilirubin,Urine Negative (Negative); Blood, Urine Negative (Negative); Glucose,Urine (UA) Negative (Negative); Ketones,Urine 20 mg/dL (Negative); Mucus,Urine Occasional /LPF (Occasional); Nitrite,Urine Negative (Negative); Protein,Urine Negative; RBC,Urine <1 /HPF (0-4); Renal Epithelial Cells,Urine Occasional /HPF (<1); Urine Color Yellow (Yellow); Urine Specific Gravity 1.011 (1.001-1.035); Urine Urobilinogen < 2.0 EU/DL (0.2-1.0); WBC,Urine 1 /HPF (0-6)
[2017-08-20] MEDS ORDERED: PROMETHAZINE 25 MG TABLET PO PRN (20:28)
[2017-08-20] MEDS: LEVOFLOXACIN INJ 750 MG in PREMIX 1 EACH IV SCH (22:00)
[2017-08-21] MEDS ORDERED: TEMAZEPAM 15 MG CAPSULE PO PRN (00:08)
[2017-08-21] MEDS ORDERED: ONDANSETRON 4 MG TABLET PO PRN (02:54)
[2017-08-21] MEDS ORDERED: LACTULOSE 20 GM/30 ML UDCUP PO PRN (02:54)
[2017-08-21] MEDS ORDERED: MORPHINE 10 MG/5 ML UDCUP PO PRN (02:54)
[2017-08-21] MEDS: PANTOPRAZOLE 40 MG TABLET PO SCH ×3 (03:24→22:01)
[2017-08-21] MEDS: DOCUSATE/SENNA 50-8.6 MG TABLET PO SCH ×3 (03:24→22:00)
[2017-08-21 05:36] LABS: Basophils % 0.3 % (0.0-0.8); Eosinophils # 0.1 10*3/uL (0.0-0.87); Eosinophils % 1.6 % (0.00-10.9); Hematocrit 26.6 VOL% (42.0-52.0); Hemoglobin 8.7 GM/DL (14.0-18.0); Immature Granulocytes % 0.7 %; Immature Granulocytes Absolute 0.05 #; Lymphocytes # 0.2 10*3/uL (1.4-4.0); Mean Corpuscular HGB Conc 32.7 GM/DL (32-36); Mean Corpuscular Hemoglobin 27 PG (27-34); Mean Corpuscular Volume 83.6 FL (87-102); Mean Platelet Volume 9.2 FL (9.6-12.0); Monocytes # 1.6 10*3/uL (0.11-0.8); Monocytes % 20.9 % (1.7-12.7); Neutrophils # 5.7 10*3/uL (1.4-7.4); Neutrophils % 73.5 % (38.7-73.9); Platelet Count 264 T/CUMM (130-400); Red Blood Count 3.18 MC/CUMM (3.8-5.5); Red Cell Distribution Width 16.2 % (9.3-17.3); White Blood Count 7.7 T/CUMM (4-12)
[2017-08-21 05:40] LABS: INR 1.1; PT Patient Result 11.8 SECS; Partial Thromboplastin Time 36.2 SECS (0-40)
[2017-08-21 06:06] LABS: Calcium 8.5 MG/DL (8.5-10.1); Osmolality,Calculated 265.2 MOS/KG (273-304); Potassium 4.2 MMOL/L (3.5-5.1)
[2017-08-21 06:32] LABS: Band Neutrophils 1 % (0-10); Burr Cells 1+; Elliptocytes 1+; Lymphocytes 5 % (20-55); Macrocytosis 1+; Platelet Estimate Adequate; Segmented Neutrophils 79 % (50-85); Total Cells Counted 100
[2017-08-21] MEDS: GABAPENTIN 100 MG CAPSULE PO SCH ×3 (08:14→22:01)
[2017-08-21] MEDS: PROMETHAZINE 25 MG TABLET PO PRN ×3 (08:15→22:00)
[2017-08-21] MEDS: oxyCODONE/ACETAMINOPHEN 5-325 MG TABLET PO PRN ×3 (08:15→22:00)
[2017-08-21] MEDS: oxyCODONE ER 10 MG TABLET PO PRN ×2 (08:15→22:00)
[2017-08-21] MEDS: METHOCARBAMOL 500 MG TABLET PO SCH ×3 (08:15→22:01)
[2017-08-21 10:37] LABS: Neutrophils,Peritoneal Fluid 90 %
[2017-08-21 10:43] LABS: LDH,Peritoneal Fluid 412 U/L; Total Protein,Peritoneal Fluid 3.3 G/DL
[2017-08-21 10:44] LABS: RBC,Peritoneal Fluid 327 T/CUMM
[2017-08-21] MEDS: TEMAZEPAM 15 MG CAPSULE PO SCH (22:00)
[2017-08-21] MEDS: LEVOFLOXACIN INJ 750 MG in PREMIX 1 EACH IV SCH (22:07)
[2017-08-22 05:44] LABS: Basophils % 0.1 % (0.0-0.8); Eosinophils # 0.1 10*3/uL (0.0-0.87); Eosinophils % 1.3 % (0.00-10.9); Hematocrit 28.8 VOL% (42.0-52.0); Hemoglobin 9.8 GM/DL (14.0-18.0); Immature Granulocytes Absolute 0.08 #; Lymphocytes # 0.3 10*3/uL (1.4-4.0); Lymphocytes % 3.8 % (21.2-54.2); Mean Corpuscular Hemoglobin 28 PG (27-34); Mean Corpuscular Volume 82.5 FL (87-102); Mean Platelet Volume 9.1 FL (9.6-12.0); Monocytes # 1.6 10*3/uL (0.11-0.8); Monocytes % 20.1 % (1.7-12.7); Neutrophils # 5.9 10*3/uL (1.4-7.4); Neutrophils % 73.7 % (38.7-73.9); Platelet Count 298 T/CUMM (130-400); Red Blood Count 3.49 MC/CUMM (3.8-5.5); Red Cell Distribution Width 16.4 % (9.3-17.3)
[2017-08-22] MEDS: PROMETHAZINE 25 MG TABLET PO PRN ×3 (06:02→19:25)
[2017-08-22 06:09] LABS: Band Neutrophils 3 % (0-10); Eosinophils 2 % (0-10); Hypochromasia 1+; Lymphocytes 2 % (20-55); Segmented Neutrophils 75 % (50-85); Total Cells Counted 100
[2017-08-22 06:10] LABS: Acanthocytes Few; Microcytosis 1+; Ovalocytes Slight; Platelet Estimate Normal
[2017-08-22 06:46] LABS: Calcium 8.4 MG/DL (8.5-10.1); Osmolality,Calculated 266.2 MOS/KG (273-304); Potassium 4.4 MMOL/L (3.5-5.1)
[2017-08-22] MEDS: oxyCODONE/ACETAMINOPHEN 5-325 MG TABLET PO PRN ×3 (08:13→20:20)
[2017-08-22] MEDS: DOCUSATE/SENNA 50-8.6 MG TABLET PO SCH ×2 (08:13→20:20)
[2017-08-22] MEDS: PANTOPRAZOLE 40 MG TABLET PO SCH ×2 (08:14→20:20)
[2017-08-22] MEDS: oxyCODONE ER 10 MG TABLET PO PRN ×2 (08:14→20:20)
[2017-08-22] MEDS: METHOCARBAMOL 500 MG TABLET PO SCH ×3 (08:14→20:20)
[2017-08-22] MEDS: GABAPENTIN 100 MG CAPSULE PO SCH ×3 (08:14→20:20)
[2017-08-22] MEDS ORDERED: GENTAMICIN INJ 80 MG in PREMIX 1 EACH IV ONE (12:56)
[2017-08-22] MEDS: TEMAZEPAM 15 MG CAPSULE PO SCH (20:19)
[2017-08-22] MEDS: LEVOFLOXACIN INJ 750 MG in PREMIX 1 EACH IV SCH (21:57)
[2017-08-23] MEDS: oxyCODONE/ACETAMINOPHEN 5-325 MG TABLET PO PRN ×2 (06:56→14:01)
[2017-08-23] MEDS: PROMETHAZINE 25 MG TABLET PO PRN ×4 (08:04→22:11)
[2017-08-23] MEDS: DOCUSATE/SENNA 50-8.6 MG TABLET PO SCH ×2 (08:04→20:49)
[2017-08-23] MEDS: oxyCODONE ER 10 MG TABLET PO PRN (08:05)
[2017-08-23] MEDS: GABAPENTIN 100 MG CAPSULE PO SCH ×3 (08:05→20:50)
[2017-08-23] MEDS: METHOCARBAMOL 500 MG TABLET PO SCH ×3 (08:06→20:50)
[2017-08-23] MEDS: PANTOPRAZOLE 40 MG TABLET PO SCH ×2 (08:06→20:50)
[2017-08-23] MEDS ORDERED: GENTAMICIN INJ 80 MG in SODIUM CHLORIDE 0.9% 100 ML IV ONE (09:00)
[2017-08-23] MEDS ORDERED: oxyCODONE/ACETAMINOPHEN 5-325 MG TABLET PO PRN (16:21)
[2017-08-23] MEDS: HYDROmorphone 2 MG/1 ML VIAL IV PRN ×2 (18:58→22:12)
[2017-08-23] MEDS: TEMAZEPAM 15 MG CAPSULE PO SCH (20:49)
[2017-08-23] MEDS: LEVOFLOXACIN INJ 750 MG in PREMIX 1 EACH IV SCH (22:13)
[2017-08-24] MEDS: HYDROmorphone 2 MG/1 ML VIAL IV PRN ×4 (04:32→19:48)
[2017-08-24] MEDS: PROMETHAZINE 25 MG TABLET PO PRN ×3 (04:33→14:43)
[2017-08-24] MEDS: DRONABINOL 2.5 MG CAPSULE PO SCH ×2 (09:46→21:29)
[2017-08-24] MEDS: DOCUSATE/SENNA 50-8.6 MG TABLET PO SCH ×2 (09:47→21:31)
[2017-08-24] MEDS: GABAPENTIN 100 MG CAPSULE PO SCH ×3 (09:48→21:29)
[2017-08-24] MEDS: PANTOPRAZOLE 40 MG TABLET PO SCH ×2 (09:49→21:31)
[2017-08-24] MEDS: oxyCODONE ER 10 MG TABLET PO PRN (09:49)
[2017-08-24] MEDS: METHOCARBAMOL 500 MG TABLET PO SCH ×3 (09:49→21:31)
[2017-08-24] MEDS ORDERED: oxyCODONE ER 10 MG TABLET PO PRN ×2 (10:00)
[2017-08-24] MEDS: oxyCODONE ER 10 MG TABLET PO SCH ×2 (14:40→21:30)
[2017-08-24] MEDS: LORazepam 0.5 MG TABLET PO PRN (19:48)
[2017-08-24] MEDS: LEVOFLOXACIN INJ 750 MG in PREMIX 1 EACH IV SCH (21:27)
[2017-08-24] MEDS: TEMAZEPAM 15 MG CAPSULE PO SCH (21:31)
[2017-08-25] MEDS: HYDROmorphone 2 MG/1 ML VIAL IV PRN ×4 (03:12→19:21)
[2017-08-25 05:26] LABS: Basophils % 0.1 % (0.0-0.8); Eosinophils # 0.1 10*3/uL (0.0-0.87); Eosinophils % 1.3 % (0.00-10.9); Hematocrit 27.3 VOL% (42.0-52.0); Immature Granulocytes % 1.1 %; Immature Granulocytes Absolute 0.08 #; Lymphocytes # 0.3 10*3/uL (1.4-4.0); Lymphocytes % 3.7 % (21.2-54.2); Mean Corpuscular Hemoglobin 27 PG (27-34); Mean Platelet Volume 9.8 FL (9.6-12.0); Monocytes % 13.5 % (1.7-12.7); Neutrophils % 80.3 % (38.7-73.9); Platelet Count 292 T/CUMM (130-400); Red Blood Count 3.29 MC/CUMM (3.8-5.5); White Blood Count 7.5 T/CUMM (4-12)
[2017-08-25 06:06] LABS: Band Neutrophils 2 % (0-10); Lymphocytes 5 % (20-55); Segmented Neutrophils 82 % (50-85); Total Cells Counted 100
[2017-08-25 06:07] LABS: Acanthocytes Few; Elliptocytes Few; Hypochromasia 1+; Microcytosis 1+
[2017-08-25 06:09] LABS: Lactic Acid 0.8 MMOL/L (0.4-2.0)
[2017-08-25] MEDS: oxyCODONE ER 10 MG TABLET PO SCH ×3 (06:10→21:14)
[2017-08-25 08:06] LABS: Albumin 2.1 G/DL (3.4-5.0); Bilirubin,Total 0.9 MG/DL (0.2-1.0); Calcium 8.2 MG/DL (8.5-10.1); Osmolality,Calculated 266.4 MOS/KG (273-304); Potassium 3.7 MMOL/L (3.5-5.1)
[2017-08-25] MEDS: PROMETHAZINE 25 MG TABLET PO PRN ×3 (08:40→19:25)
[2017-08-25] MEDS: GABAPENTIN 100 MG CAPSULE PO SCH ×3 (08:41→21:13)
[2017-08-25] MEDS: DOCUSATE/SENNA 50-8.6 MG TABLET PO SCH ×2 (08:41→21:13)
[2017-08-25] MEDS: DRONABINOL 2.5 MG CAPSULE PO SCH ×2 (08:41→21:13)
[2017-08-25] MEDS: PANTOPRAZOLE 40 MG TABLET PO SCH ×2 (08:41→21:13)
[2017-08-25] MEDS: METHOCARBAMOL 500 MG TABLET PO SCH ×3 (08:41→21:14)
[2017-08-25] MEDS ORDERED: GENTAMICIN INJ 80 MG in SODIUM CHLORIDE 0.9% 100 ML IV ONE (12:32)
[2017-08-25] MEDS: TEMAZEPAM 15 MG CAPSULE PO SCH (21:15)
[2017-08-25] MEDS: LEVOFLOXACIN INJ 750 MG in PREMIX 1 EACH IV SCH (21:16)
[2017-08-26] MEDS: HYDROmorphone 2 MG/1 ML VIAL IV PRN ×7 (00:03→21:21)
[2017-08-26] MEDS: oxyCODONE ER 10 MG TABLET PO SCH ×3 (05:54→21:01)
[2017-08-26] MEDS: DRONABINOL 2.5 MG CAPSULE PO SCH ×2 (08:29→21:01)
[2017-08-26] MEDS: GABAPENTIN 100 MG CAPSULE PO SCH ×3 (08:30→21:02)
[2017-08-26] MEDS: PANTOPRAZOLE 40 MG TABLET PO SCH ×2 (08:30→21:02)
[2017-08-26] MEDS: PROMETHAZINE 25 MG TABLET PO PRN ×3 (08:30→18:31)
[2017-08-26] MEDS: METHOCARBAMOL 500 MG TABLET PO SCH ×3 (08:30→21:02)
[2017-08-26] MEDS: DOCUSATE/SENNA 50-8.6 MG TABLET PO SCH ×2 (08:30→21:02)
[2017-08-26] MEDS: TEMAZEPAM 15 MG CAPSULE PO SCH (21:01)
[2017-08-26] MEDS: LEVOFLOXACIN INJ 750 MG in PREMIX 1 EACH IV SCH (21:04)
[2017-08-27] MEDS: HYDROmorphone 2 MG/1 ML VIAL IV PRN ×5 (04:15→21:06)
[2017-08-27] MEDS: PROMETHAZINE 25 MG TABLET PO PRN ×4 (04:19→17:03)
[2017-08-27] MEDS: oxyCODONE ER 10 MG TABLET PO SCH ×3 (05:56→21:08)
[2017-08-27] MEDS: PANTOPRAZOLE 40 MG TABLET PO SCH ×2 (08:52→21:15)
[2017-08-27] MEDS: GABAPENTIN 100 MG CAPSULE PO SCH ×3 (08:52→21:09)
[2017-08-27] MEDS: DRONABINOL 2.5 MG CAPSULE PO SCH ×2 (08:52→21:08)
[2017-08-27] MEDS: METHOCARBAMOL 500 MG TABLET PO SCH ×3 (08:52→21:10)
[2017-08-27] MEDS: DOCUSATE/SENNA 50-8.6 MG TABLET PO SCH ×2 (08:52→21:09)
[2017-08-27] MEDS ORDERED: WITCH HAZEL PADS 100/JAR TOP PRN (12:50)
[2017-08-27] MEDS ORDERED: PHENYLEPH/MINERAL OIL/PETROLAT 57 GM TUBE TOP PRN (12:51)
[2017-08-27] MEDS: LUBIPROSTONE 24 MCG CAPSULE PO SCH ×2 (15:44→21:15)
[2017-08-27] MEDS: LEVOFLOXACIN INJ 750 MG in PREMIX 1 EACH IV SCH (21:05)
[2017-08-27] MEDS: TEMAZEPAM 15 MG CAPSULE PO SCH (21:08)
[2017-08-28] MEDS: HYDROmorphone 2 MG/1 ML VIAL IV PRN ×2 (04:03→12:14)
[2017-08-28] MEDS: oxyCODONE ER 10 MG TABLET PO SCH ×2 (06:15→14:52)
[2017-08-28] MEDS ORDERED: MAGNESIUM HYDROXIDE SUSP 30 ML UDCUP PO PRN (09:10)
[2017-08-28] MEDS: DOCUSATE/SENNA 50-8.6 MG TABLET PO SCH (09:21)
[2017-08-28] MEDS: DRONABINOL 2.5 MG CAPSULE PO SCH (09:21)
[2017-08-28] MEDS: PANTOPRAZOLE 40 MG TABLET PO SCH (09:22)
[2017-08-28] MEDS: LUBIPROSTONE 24 MCG CAPSULE PO SCH (09:22)
[2017-08-28] MEDS: GABAPENTIN 100 MG CAPSULE PO SCH ×2 (09:22→14:52)
[2017-08-28] MEDS: METHOCARBAMOL 500 MG TABLET PO SCH ×2 (09:22→14:53)
[2017-08-28] MEDS: PROMETHAZINE 25 MG TABLET PO PRN (09:45)
[2017-08-28 10:03] LABS: Basophils % 0.1 % (0.0-0.8); Eosinophils # 0.1 10*3/uL (0.0-0.87); Eosinophils % 1.3 % (0.00-10.9); Hematocrit 27.8 VOL% (42.0-52.0); Hemoglobin 9.1 GM/DL (14.0-18.0); Immature Granulocytes % 1.7 %; Immature Granulocytes Absolute 0.13 #; Lymphocytes # 0.2 10*3/uL (1.4-4.0); Lymphocytes % 3.1 % (21.2-54.2); Mean Corpuscular HGB Conc 32.7 GM/DL (32-36); Mean Corpuscular Hemoglobin 27 PG (27-34); Mean Corpuscular Volume 83.5 FL (87-102); Mean Platelet Volume 9.5 FL (9.6-12.0); Monocytes # 1.2 10*3/uL (0.11-0.8); Monocytes % 15.9 % (1.7-12.7); Neutrophils # 5.9 10*3/uL (1.4-7.4); Neutrophils % 77.9 % (38.7-73.9); Platelet Count 317 T/CUMM (130-400); Red Blood Count 3.33 MC/CUMM (3.8-5.5); Red Cell Distribution Width 15.9 % (9.3-17.3); White Blood Count 7.5 T/CUMM (4-12)
[2017-08-28 10:11] LABS: INR 1.1
[2017-08-28 10:18] LABS: Partial Thromboplastin Time 45.3 SECS (0-40)
[2017-08-28 10:23] LABS: Albumin 2.2 G/DL (3.4-5.0); Bilirubin,Total 0.7 MG/DL (0.2-1.0); Calcium 8.1 MG/DL (8.5-10.1); Osmolality,Calculated 259.9 MOS/KG (273-304); Potassium 3.9 MMOL/L (3.5-5.1); Total Protein 5.1 G/DL (6.4-8.3)
[2017-08-28 11:15] LABS: Band Neutrophils 3 % (0-10); Eosinophils 3 % (0-10); Giant Platelets Few; Hypochromasia 1+; Lymphocytes 1 % (20-55); Microcytosis Slight; Platelet Estimate Adequate; Segmented Neutrophils 78 % (50-85); Total Cells Counted 100
[2017-08-28 11:27] VITALS: BP 120/74
[2017-08-28] MEDS: LORazepam 0.5 MG TABLET PO PRN (12:14)
[2017-08-28] MEDS ORDERED: HEPARIN LOCK FLUSH 500 UNIT/5 ML SYRINGE IV PRN (14:12)
== END 2017-08-28 15:10 | disposition home or self-care (01) | DRG 435 ==
LOC: N.ED 12:31 → SUATTDRO 20:27 → N.EDINP 20:27 → N.4E 21:42
PROVIDERS: ADMIT Internal Medicine; ATTEND Internal Medicine